=== PATIENT | male | born 2000 | race Caucasian/White ===

== ENCOUNTER 2024-05-13 08:54 | Emergency (ER) | payer MEDICAID ==
[~2024-05-13] VITALS: Ht 167.6 cm; Wt 68.0 kg
[2024-05-13 08:56] VITALS: O2SAT 99
[2024-05-13] MEDS: TETANUS, DIPHTHERIA, PERTUSSIS VAC/PF 0.5ML (>10YR OLD) IM ONE (11:02)
[2024-05-13] MEDS: BACITRACIN ZINC OINT UDPKT TOP ONE (11:03)
[2024-05-13] MEDS: LIDOCAINE HCL/PF 1% 10 MG/ML 5ML VIAL INFIL ONE (11:03)
[2024-05-13 12:45] VITALS: BP 114/70; PULSE 87; RESP 18; TEMP 36.83628; O2SAT 99
== END 2024-05-13 12:46 | disposition home or self-care (01) ==
LOC: ER 08:54
DX: S81.011A Laceration without foreign body, right knee, initial encounter (principal); W22.8XXA Striking against or struck by other objects, initial encounter; Y93.H2 Activity, gardening and landscaping; Y92.89 Other specified places as the place of occurrence of the external cause; Y99.8 Other external cause status
CPT/HCPCS: 99283; 90715; 12001; 90471; J3490